=== PATIENT | male | born 1975 | race Asian ===

== ENCOUNTER 2024-10-25 18:35 | Emergency (ER) | payer SELFPAY ==
[~2024-10-25] VITALS: Ht 167.6 cm; Wt 72.0 kg
[2024-10-25 18:39] VITALS: O2SAT 99
[2024-10-25] MEDS ORDERED: TETANUS, DIPHTHERIA, PERTUSSIS VAC/PF 0.5ML (>10YR OLD) IM ONE (19:15)
[2024-10-25] MEDS: BACITRACIN ZINC OINT UDPKT TOP ONE (20:16)
[2024-10-25] MEDS: ACETAMINOPHEN 325MG TABLET PO ONE (20:17)
[2024-10-25] MEDS: LIDOCAINE HCL/PF 1% 10 MG/ML 5ML VIAL INFIL ONE (20:17)
[2024-10-25] MEDS ORDERED: BO1 TP (20:32)
[2024-10-25] MEDS ORDERED: AMOX1TAB16 MT (20:32)
[2024-10-25] MEDS: TETANUS, DIPHTHERIA, PERTUSSIS VAC/PF 0.5ML (>10YR OLD) IM ONE (21:11)
[2024-10-25 21:17] VITALS: BP 129/81; PULSE 77; RESP 18; TEMP 36.6; O2SAT 98
== END 2024-10-25 21:19 | disposition home or self-care (01) ==
LOC: ER 18:35
DX: S01.511A Laceration without foreign body of lip, initial encounter (principal); E11.9 Type 2 diabetes mellitus without complications; Z79.899 Other long term (current) drug therapy; W54.0XXA Bitten by dog, initial encounter; Y93.89 Activity, other specified; Y92.89 Other specified places as the place of occurrence of the external cause; Y99.8 Other external cause status
CPT/HCPCS: 90715; 12011; 90471; 99283; J2003; Z7610